=== PATIENT | female | born 1970 | race Hispanic/Latino ===

== ENCOUNTER → 2022-12-23 | Day surgery (SDC) | payer BC ==
[~2022-12-23] MED LIST: APRISO0.375 GM PO; LIDOCAINE HCL 2% LOCAL INJ 5 ML SDV VIAL INJ ONE; MAGNESIUM CITR125 MG PO; MELATONIN3 MG PO; MESALAMINE1000 MG RC; ONDANSETRON HCL INJ 2MG/ML 2ML 2 MG/ML VIAL ONE; PROPOFOL IV EMULSION 10 MG/ML 20 ML VIAL ONE
[2022-12-23 17:30] VITALS: BP 110/80
== END | disposition home or self-care (01) ==
LOC: OR 14:29
PROVIDERS: ATTEND Internal Medicine Gastroenterology
DX: K29.70 Gastritis, unspecified, without bleeding (principal); K63.5 Polyp of colon; K31.7 Polyp of stomach and duodenum; K22.10 Ulcer of esophagus without bleeding; K25.9 Gastric ulcer, unspecified as acute or chronic, without hemorrhage or perforation; K64.8 Other hemorrhoids; Z71.3 Dietary counseling and surveillance; H93.19 Tinnitus, unspecified ear; J30.2 Other seasonal allergic rhinitis; Z01.810 Encounter for preprocedural cardiovascular examination; Z68.39 Body mass index [BMI] 39.0-39.9, adult
CPT/HCPCS: 36415; 43239; 43251; 45380; 83630; 83993; 85651; 86256; 86671; 87045; 87177; 87324; 87328; 87449; 93005; C9113; J2001; J2405; J2704; 45378